=== PATIENT | female | born 1970 | race Caucasian/White ===

== ENCOUNTER 2021-02-23 16:40 | Emergency (ER) | payer OTHER ==
[~2021-02-23] VITALS: Ht 162.6 cm; Wt 93.9 kg
[~2021-02-23 16:40] MED LIST: AMBIEN5 MG PO; CYCLOBENZAPRINE10 MG PO; CYMBALTA20 MG PO; FENTANYL1 EACH TOP; GABAPENTIN300 MG PO; HYDROCODON-ACE1 EAC9 PO; NORCO 10-325 T1 EACH PO; TIZANIDINE HCL4 MG PO; TYLENOL WITH C1 EACH PO; XARELTO10 MG PO
[2021-02-23 17:59] LABS: BASOPHILS # (AUTO) 0.1 (0.0-0.1); BASOPHILS % 1.1 % (0.0-1.0); EOSINOPHILS % 0.9 % (0.0-6.0); HEMATOCRIT 42.2 % (34.2-44.1); HEMOGLOBIN 13.3 g/dL (12.0-16.0); LYMPHOCYTES # (AUTO) 1.3 (1.0-3.2); LYMPHOCYTES % 28.4 % (18.0-39.1); MEAN CORPUSCULAR HEMOGLOBIN 29.1 pg (28-32); MEAN CORPUSCULAR HGB CONC 31.5 g/dL (31-35); MEAN CORPUSCULAR VOLUME 92.3 fL (81-99); MONOCYTES # (AUTO) 0.7 (0.2-0.8); MONOCYTES % 14.7 % (4.4-11.3); NEUTROPHILS # (AUTO) 2.4 (2.1-6.9); NEUTROPHILS % 54.7 % (38.7-80.0); PLATELET COUNT 372 x10e3/uL (140-360); RED BLOOD COUNT 4.57 x10e6/uL (3.6-5.1)
[2021-02-23 18:20] LABS: ALBUMIN 3.2 g/dL (3.5-5.0); ALBUMIN/GLOBULIN RATIO 0.8 (0.8-2.0); ANION GAP 16.9 mmol/L (8-16); CALCIUM 8.2 mg/dL (8.4-10.2); CREATININE, SERUM 0.76 mg/dL (0.57-1.11)
[2021-02-23 18:24] LABS: POTASSIUM 2.9 mmol/L (3.5-5.1)
[2021-02-23 18:28] LABS: CREATINE KINASE MB 0.8 ng/mL (0-5.0)
[2021-02-23] MEDS ORDERED: POTASSIUM CHLORIDE 20 MEQ TAB CR PO STA (19:36)
[2021-02-23] MEDS ORDERED: SODIUM CHLORIDE 0.9% 50ML 50 ML ONE (19:53)
[2021-02-23] MEDS ORDERED: IOPAMIDOL 370 MG/ML 200 ML INFUS..BTL INJ ONE (19:53)
[2021-02-23 20:17] LABS: THYROID STIMULATING HORMONE 0.954 uIU/mL (0.350-4.940)
[2021-02-23 22:36] VITALS: BP 146/89
== END 2021-02-23 22:17 | disposition home or self-care (01) ==
LOC: ER 17:25
DX: I10 Essential (primary) hypertension (principal); E87.6 Hypokalemia; R00.0 Tachycardia, unspecified; Z98.84 Bariatric surgery status; Z88.0 Allergy status to penicillin; Z88.8 Allergy status to other drugs, medicaments and biological substances
CPT/HCPCS: 36415; 71045; 71260; 80053; 82550; 82553; 84436; 84443; 84479; 84484; 85025; 85379; 93005; 99284; Q9967